=== PATIENT | male | born 1965 | race Caucasian/White ===

== ENCOUNTER 2017-09-05 00:15 | Inpatient (IN) | payer OTHER ==
[~2017-09-05] VITALS: Ht 182.9 cm; Wt 89.4 kg
[~2017-09-05 00:15] MED LIST: (None)15 G1 EXT; Bactrim 400-801 EACH PO; Bactrim Ds Tab1 EACH PO; CEPH500 PO; HYDHCL25 PO; Keflex500 MG PO; METPRE4DP PO; Nix Lice Treatm59 ML TOP; Nix Lice Treatm59 ML TP; Percocet 5-3251 EACH PO; Prednisone50 MG PO; SKIN TREATMENT225 GM TOP; Vistaril50 MG PO
[2017-09-05 01:26] LABS: BASOPHILS ABSOLUTE AUTO 0.03 K/mm3 (0.00-0.23); BASOPHILS PERCENT AUTO 0 % (0-2); EOSINOPHILS ABSOLUTE AUTO 0.11 K/mm3 (0.00-0.68); EOSINOPHILS PERCENT AUTO 1 % (0-6); Hematocrit 29.4 % (37.0-53.0); Hemoglobin 8.6 g/dL (13.5-17.5); IMMATURE GRAN ABSOLUTE AUTO 0.04 K/mm3 (0.00-0.10); IMMATURE GRAN PERCENT AUTO 0 % (0-1); LYMPHOCYTES ABSOLUTE AUTO 1.21 K/mm3 (0.84-5.20); LYMPHOCYTES PERCENT AUTO 12 % (21-46); MONOCYTES PERCENT AUTO 7 % (4-13); Mean Corpuscular HGB 22.6 pg (26.0-34.0); Mean Corpuscular HGB Conc 29.3 g/dL (31.5-36.5); Mean Corpuscular Volume 77 fL (80-100); Mean Platelet Volume 8.3 fL (9.1-12.4); NEUTROPHILS ABSOLUTE AUTO 8.32 K/mm3 (1.96-9.15); NEUTROPHILS PERCENT AUTO 80 % (41-73); Platelet Count 573 K/mm3 (150-400); RDW Coefficient Variation 17.1 % (11.7-14.2); RDW Standard Deviation 47.9 fL (35.1-46.3); White Blood Cell Count 10.41 K/mm3 (4.00-11.30)
[2017-09-05 01:41] LABS: International Normalized Ratio 1.07; Prothrombin Time Results 11.1 Sec (9.7-11.5)
[2017-09-05 01:44] LABS: Alanine Aminotransfer (ALT/SGP 15 U/L (12-78); Albumin, Blood 2.1 g/dL (3.4-5.0); Albumin/Globulin Ratio 0.4 (0.8-1.8); Alk Phos 67 U/L (50-136); Anion Gap 5 mmol/L (6-16); Aspartate Aminotrans (AST/SGOT 11 U/L (12-37); Bilirubin, Total 0.2 mg/dL (0.1-1.0); Blood Urea Nitrogen 18 mg/dL (8-24); Bun/Creatinine Ratio 17.8 (12.0-20.0); CO2, Blood 30 mmol/L (21-32); Calcium, Blood 8.2 mg/dL (8.5-10.1); Chloride, Blood 103 mmol/L (98-108); Creatinine, Blood 1.01 mg/dL (0.60-1.20); Globulin, Blood 5.7 g/dL (2.2-4.0); Glomerular Filtration Rate >60 (60-); Glucose, Blood 105 mg/dL (70-99); Potassium, Blood 4.5 mmol/L (3.5-5.5); Sodium, Blood 138 mmol/L (136-145); Total Protein, Blood 7.8 g/dL (6.4-8.2)
[2017-09-05 06:49] LABS: BASOPHILS ABSOLUTE AUTO 0.04 K/mm3 (0.00-0.23); BASOPHILS PERCENT AUTO 1 % (0-2); EOSINOPHILS ABSOLUTE AUTO 0.23 K/mm3 (0.00-0.68); EOSINOPHILS PERCENT AUTO 3 % (0-6); Hematocrit 27.7 % (37.0-53.0); Hemoglobin 8.1 g/dL (13.5-17.5); IMMATURE GRAN ABSOLUTE AUTO 0.04 K/mm3 (0.00-0.10); IMMATURE GRAN PERCENT AUTO 1 % (0-1); LYMPHOCYTES ABSOLUTE AUTO 0.95 K/mm3 (0.84-5.20); LYMPHOCYTES PERCENT AUTO 11 % (21-46); MONOCYTES ABSOLUTE AUTO 0.65 K/mm3 (0.16-1.47); MONOCYTES PERCENT AUTO 8 % (4-13); Mean Corpuscular HGB 22.7 pg (26.0-34.0); Mean Corpuscular HGB Conc 29.2 g/dL (31.5-36.5); Mean Corpuscular Volume 78 fL (80-100); Mean Platelet Volume 8.2 fL (9.1-12.4); NEUTROPHILS ABSOLUTE AUTO 6.75 K/mm3 (1.96-9.15); NEUTROPHILS PERCENT AUTO 78 % (41-73); Platelet Count 515 K/mm3 (150-400); Red Blood Cell Count 3.57 M/mm3 (4.30-5.90); White Blood Cell Count 8.66 K/mm3 (4.00-11.30)
[2017-09-05 07:11] LABS: Alanine Aminotransfer (ALT/SGP 12 U/L (12-78); Albumin, Blood 1.9 g/dL (3.4-5.0); Albumin/Globulin Ratio 0.4 (0.8-1.8); Alk Phos 57 U/L (50-136); Anion Gap 7 mmol/L (6-16); Aspartate Aminotrans (AST/SGOT 9 U/L (12-37); Bilirubin, Total 0.3 mg/dL (0.1-1.0); Blood Urea Nitrogen 17 mg/dL (8-24); Bun/Creatinine Ratio 18.5 (12.0-20.0); CO2, Blood 26 mmol/L (21-32); Calcium, Blood 7.9 mg/dL (8.5-10.1); Chloride, Blood 106 mmol/L (98-108); Creatinine, Blood 0.92 mg/dL (0.60-1.20); Globulin, Blood 5.3 g/dL (2.2-4.0); Glomerular Filtration Rate >60 (60-); Glucose, Blood 83 mg/dL (70-99); Sodium, Blood 139 mmol/L (136-145); Total Protein, Blood 7.2 g/dL (6.4-8.2)
[2017-09-05 17:08] LABS: U Amphetamine Screen DETECTED; U Barbituate Screen Not Detected; U Benzodiazapine Screen Not Detected; U Methamphetamine Screen DETECTED
[2017-09-05 17:09] LABS: U Buprenorphine Screen Not Detected; U Cannabinoids Screen DETECTED; U Cocaine Screen Not Detected; U Methadone Screen Not Detected; U Opiates Screen DETECTED; U Oxycodone Screen Not Detected; U Phencyclidine Screen Not Detected; U Propoxyphene Screen Not Detected
[2017-09-06 14:21] LABS: Creatinine, Blood 0.93 mg/dL (0.60-1.20); Vancomycin, Trough 16.6 ug/mL (5.0-10.0)
[2017-09-07] MEDS ORDERED: Ferrous Sulfat325 MG PO (13:35)
[2017-09-07] MEDS ORDERED: HYDHCL25 PO (13:37)
[2017-09-07] MEDS ORDERED: MIRALAX17 GM PO (13:38)
[2017-09-07] MEDS ORDERED: Augmentin 875-1 EACH PO (13:38)
[2017-09-07] MEDS ORDERED: ONE DAILY MUL400 MCG (13:43)
== END 2017-09-07 14:55 | disposition home or self-care (01) | DRG 256 ==
LOC: ER 00:15 → MEDS 03:37 → ERHOLD 03:37 → MEDS 15:02 → ENPENDDIS 09-07 10:30 → MEDS 09-07 14:55
PROVIDERS: Emergency Medicine; Internal Medicine; Student in an Organized Health Care Education/Training Program
PROC: 0Y6X0Z0 Detachment at Right 5th Toe, Complete, Open Approach (ICD-10-PCS; principal; 2017-09-06 10:30)
DX: I96 Gangrene, not elsewhere classified (principal); L03.115 Cellulitis of right lower limb; F17.210 Nicotine dependence, cigarettes, uncomplicated; D64.9 Anemia, unspecified; F19.10 Other psychoactive substance abuse, uncomplicated; Q80.0 Ichthyosis vulgaris; B95.4 Other streptococcus as the cause of diseases classified elsewhere
CPT/HCPCS: 36415; 71046; 73620; 80053; 80202; 82565; 83605; 85025; 85610; 85730; 87040; 87070; 87071; 87075; 87077; 87147; 87186; 87205; 88305; 88311; 93926; 93971; 96365; 96366; 96367; 96372; 96375; 96376; 99285; J1650; J1885; J2250; J2270; J2405; J2543; J3010; J3370; J7030; J7050; J7120

== ENCOUNTER 2020-04-09 14:34 | Emergency (ER) | payer OTHER ==
[~2020-04-09] VITALS: Ht 177.8 cm; Wt 99.8 kg
[~2020-04-09 14:34] MED LIST changes: +Augmentin 875-1 EACH PO; +Ferrous Sulfat325 MG PO; +MIRALAX17 GM PO; +ONE DAILY MUL400 MCG
[2020-04-09 15:28] LABS: BASOPHILS ABSOLUTE AUTO 0.06 K/mm3 (0.00-0.23); BASOPHILS PERCENT AUTO 0 % (0-2); EOSINOPHILS PERCENT AUTO 0 % (0-6); Hematocrit 42.9 % (37.0-53.0); Hemoglobin 14.3 g/dL (13.5-17.5); IMMATURE GRAN ABSOLUTE AUTO 0.08 K/mm3 (0.00-0.10); IMMATURE GRAN PERCENT AUTO 1 % (0-1); LYMPHOCYTES ABSOLUTE AUTO 0.99 K/mm3 (0.84-5.20); LYMPHOCYTES PERCENT AUTO 6 % (21-46); MONOCYTES ABSOLUTE AUTO 0.64 K/mm3 (0.16-1.47); MONOCYTES PERCENT AUTO 4 % (4-13); Mean Corpuscular HGB 28.9 pg (26.0-34.0); Mean Corpuscular HGB Conc 33.3 g/dL (31.5-36.5); Mean Corpuscular Volume 87 fL (80-100); NEUTROPHILS ABSOLUTE AUTO 14.45 K/mm3 (1.96-9.15); NEUTROPHILS PERCENT AUTO 89 % (41-73); Platelet Count 280 K/mm3 (150-400); RDW Coefficient Variation 14.5 % (11.7-14.2); RDW Standard Deviation 46.5 fL (35.1-46.3); Red Blood Cell Count 4.94 M/mm3 (4.30-5.90); White Blood Cell Count 16.22 K/mm3 (4.00-11.30)
[2020-04-09 15:45] LABS: International Normalized Ratio 1.04; Prothrombin Time Results 11.1 Sec (9.7-11.5)
[2020-04-09 15:53] LABS: Albumin, Blood 3.1 g/dL (3.4-5.0); Albumin/Globulin Ratio 0.6 (0.8-1.8); Bilirubin, Total 1.5 mg/dL (0.1-1.0); Bun/Creatinine Ratio 14.4 (12.0-20.0); Calcium, Blood 8.8 mg/dL (8.5-10.1); Creatinine, Blood 1.39 mg/dL (0.60-1.20); Globulin, Blood 5.1 g/dL (2.2-4.0); Potassium, Blood 4.4 mmol/L (3.5-5.5); Total Protein, Blood 8.2 g/dL (6.4-8.2)
[2020-04-09] MEDS ORDERED: KEFLEX500 MG PO (17:18)
[2020-04-09] MEDS ORDERED: Bactrim Ds Tab1 EACH PO (17:18)
[2020-04-09] MEDS ORDERED: Lasix20 MG PO (17:18)
== END 2020-04-09 17:45 | disposition home or self-care (01) ==
LOC: ER 14:34
PROVIDERS: Physician Assistant
DX: L03.115 Cellulitis of right lower limb (principal); F17.210 Nicotine dependence, cigarettes, uncomplicated; Z79.899 Other long term (current) drug therapy
CPT/HCPCS: 36415; 80053; 83605; 85025; 85610; 85730; 93005; 93010; 93971; 96365; 99284-25; J0696

== ENCOUNTER 2022-02-27 13:42 | Emergency (ER) | payer OTHER ==
[~2022-02-27] VITALS: Ht 177.8 cm; Wt 104.3 kg
[~2022-02-27 13:42] MED LIST changes: +KEFLEX500 MG PO; +Lasix20 MG PO
[2022-02-27 14:49] LABS: BASOPHILS ABSOLUTE AUTO 0.03 K/mm3 (0.00-0.23); BASOPHILS PERCENT AUTO 0 % (0-2); EOSINOPHILS ABSOLUTE AUTO 0.11 K/mm3 (0.00-0.68); EOSINOPHILS PERCENT AUTO 1 % (0-6); Hematocrit 35.8 % (37.0-53.0); Hemoglobin 11.6 g/dL (13.5-17.5); IMMATURE GRAN ABSOLUTE AUTO 0.04 K/mm3 (0.00-0.10); IMMATURE GRAN PERCENT AUTO 1 % (0-1); LYMPHOCYTES ABSOLUTE AUTO 0.99 K/mm3 (0.84-5.20); LYMPHOCYTES PERCENT AUTO 13 % (21-46); MONOCYTES ABSOLUTE AUTO 0.46 K/mm3 (0.16-1.47); MONOCYTES PERCENT AUTO 6 % (4-13); Mean Corpuscular HGB 27.2 pg (26.0-34.0); Mean Corpuscular HGB Conc 32.4 g/dL (31.5-36.5); Mean Corpuscular Volume 84 fL (80-100); NEUTROPHILS ABSOLUTE AUTO 6.04 K/mm3 (1.96-9.15); NEUTROPHILS PERCENT AUTO 79 % (41-73); Platelet Count 377 K/mm3 (150-400); RDW Coefficient Variation 15.6 % (11.7-14.2); RDW Standard Deviation 47.3 fL (35.1-46.3); Red Blood Cell Count 4.26 M/mm3 (4.30-5.90); White Blood Cell Count 7.67 K/mm3 (4.00-11.30)
[2022-02-27] MEDS ORDERED: CEPH500 PO (14:49)
[2022-02-27 15:11] LABS: Albumin, Blood 2.7 g/dL (3.4-5.0); Albumin/Globulin Ratio 0.5 (0.8-1.8); Bilirubin, Total 0.3 mg/dL (0.1-1.0); Bun/Creatinine Ratio 14.8 (12.0-20.0); Calcium, Blood 8.3 mg/dL (8.5-10.1); Creatinine, Blood 1.22 mg/dL (0.60-1.20); Globulin, Blood 5.3 g/dL (2.2-4.0); Potassium, Blood 4.1 mmol/L (3.5-5.5)
== END 2022-02-27 15:28 | disposition home or self-care (01) ==
LOC: ER 13:42
PROVIDERS: Emergency Medicine
DX: Q80.0 Ichthyosis vulgaris (principal); L03.818 Cellulitis of other sites; F17.210 Nicotine dependence, cigarettes, uncomplicated
CPT/HCPCS: 36415; 80053; 85025

== ENCOUNTER 2024-01-24 18:31 | Inpatient (IN) | payer OTHER ==
[~2024-01-24] VITALS: Ht 180.3 cm; Wt 102.0 kg
[2024-01-24 18:55] LABS: Hemoglobin 12.5 g/dL (13.5-17.5); Mean Corpuscular HGB 28.2 pg (26.0-34.0); Mean Corpuscular HGB Conc 33.8 g/dL (31.5-36.5); Mean Corpuscular Volume 83 fL (80-100); Mean Platelet Volume 9.5 fL (9.1-12.4); Platelet Count 256 K/mm3 (150-400); RDW Coefficient Variation 15.1 % (11.7-14.2); RDW Standard Deviation 46.2 fL (35.1-46.3); Red Blood Cell Count 4.44 M/mm3 (4.30-5.90); White Blood Cell Count 12.15 K/mm3 (4.00-11.30)
[2024-01-24] MEDS ORDERED: Acetaminophen 500 MG Tab PO ONE (18:55)
[2024-01-24 19:16] LABS: BAND PERCENT MAN 11 % (0-8); BASOPHILS PERCENT MAN 0 % (0-2); EOSINOPHILS PERCENT MAN 0 % (0-6); LYMPHOCYTES ABSOLUTE MAN 0.97 K/mm3 (0.84-5.20); LYMPHOCYTES PERCENT MAN 8 % (21-46); MONOCYTES ABSOLUTE MAN 0.12 K/mm3 (0.16-1.47); MONOCYTES PERCENT MAN 1 % (4-13); NEUTROPHILS ABSOLUTE MAN 11.05 K/mm3 (1.96-9.15); SEG NEUTROPHILS PERCENT MAN 80 % (41-73); TOTAL CELLS COUNTED 100
[2024-01-24 19:18] LABS: Albumin, Blood 2.9 g/dL (3.4-5.0); Albumin/Globulin Ratio 0.7 (0.8-1.8); Bun/Creatinine Ratio 13.8 (12.0-20.0); Calcium, Blood 8.1 mg/dL (8.5-10.1); Creatinine, Blood 1.59 mg/dL (0.60-1.20); Globulin, Blood 4.3 g/dL (2.2-4.0); Potassium, Blood 3.3 mmol/L (3.5-5.5); Total Protein, Blood 7.2 g/dL (6.4-8.2)
[2024-01-24 19:27] LABS: Magnesium, Blood 1.5 mg/dL (1.6-2.4)
[2024-01-24 19:29] LABS: Thyroid Stimulating Hormone 0.356 uIU/mL (0.360-4.800)
[2024-01-24 19:42] LABS: Influenza A, PCR NEGATIVE (NEGATIVE); Influenza B, PCR NEGATIVE (NEGATIVE); Resp Syncytial Virus, PCR NEGATIVE (NEGATIVE); SARS-Cov-2 (COVID-19) PCR, MMC NEGATIVE (NEGATIVE)
[2024-01-24] MEDS ORDERED: CefTRIAXone Sodium 1,000 MG in NS 100 ML IV ONE (19:55)
[2024-01-24 20:21] VITALS: BP 119/62
[2024-01-24] MEDS ORDERED: NS 500 ML IV SCH (20:35)
[2024-01-24] MEDS ORDERED: Azithromycin 500 MG in NS 250 ML IV ONE (21:00)
[2024-01-24] MEDS ORDERED: Ondansetron HCl 2 MG / ML 2ML Vial IV PRN (21:25)
[2024-01-24] MEDS ORDERED: Ipratropium/Albuterol SulF 2.5-0.5MG/3 ML Amp INH PRN (21:25)
[2024-01-24] MEDS ORDERED: Vancomycin HCL 2,500 MG in NS 250 ML IV ONE (21:35)
[2024-01-24] MEDS ORDERED: Piperacillin/Tazobactam Sod 4.5 GM in NS 100 ML IV ONE (21:35)
[2024-01-24] MEDS ORDERED: ASPIRIN REGIMEN81 MG PO (21:45)
[2024-01-24] MEDS ORDERED: AMLODIPINE BESY10 MG PO (21:45)
[2024-01-24] MEDS ORDERED: MethylPREDNISolone Sod Succ 125 MG Vial IV SCH (22:00)
[2024-01-24 22:08] LABS: Source, Urine Clean Catch
[2024-01-24 22:12] LABS: Bilirubin, Urine Neg (Neg); Blood, Urine 3+ (Neg); Glucose Qualitative, Urine 2+ (Neg); Ketones, Urine 3+ (Neg); Leukocyte Esterase, Urine Neg (Neg); Nitrite, Urine Neg (Neg); Protein, Urine 2+ (Neg); Urobilinogen, Urine NORM (Normal)
[2024-01-24 22:26] LABS: Appearance, Urine Clear (Clear); Color, Urine Yellow (P-Yellow); International Normalized Ratio 1.08; Prothrombin Time Results 11.5 Sec (9.7-11.5)
[2024-01-24 22:27] LABS: Amorphous Light (0-Heavy); Bacteria Rare /hpf; Red Blood Cells, Urine 0-2 /hpf (0-2); Squamous Epithelial Cells Rare /hpf (Few); White Blood Cells, Urine 0-2 /hpf (0-5)
--- NOTE | 2024-01-24 23:00 | NUR ---
ARRIVAL TO PCU: RECEIVED REPORT FROM EDGER AUTOMATIC TERRI AYALA AT 2150, PT SHORTLY ARRIVED TO PCU 2 AT 2213. TRANSFERRED FROM [facility] TO PCU BED VIA SLIDE SHEET. A/Ox4 AND ABLE TO MAKE HIS NEEDS KNOWN. SEE ADMIT ASSESSMENT FOR DETAILS. CARDIAC, TELEMETRY SHOWED SR 90'S WITH NO REPORTS OF CP, PRESSURE OR DIZZINESS. SBP STABLE RANGING 120'S. RESPIRATORY, MAINTAINS SPO2 >90% ON RA, RR RANGING 20-24 WITH SOB NOTED WITH MINMAL EXERTION. VERY MOIST AND PRODUCTIVE COUGH NOTED. SPUTUM NOTED TO HAVE BLOOD TINGE. SPUTUM SAMPLE COLLECTED. PER EDGER AUTOMATIC, AWARE OF BLOODY SPUTUM. GI/, ABLE TO USE URNIAL AT BEDSIDE WITH MINIMAL STAFF ASSIST. DENIES N/V OR ABD TENDERNESS. BS PRESENT IN ALL QUADRANTS. SKIN OVERALL INTACT, BUT NOTICIBLE DIRT AND GRIME NOTED. BED BACK GIVEN. DURING BATH, PT NOTED TO HAVE SMALL TICK ON LEFT UPPER BACK. TICK REMOVED AND PLACED IN COLLECTION CUP. DR. GIL NOTIFIED. SMALL MASS NOTED ON LEFT SIDE OF PT'S HEAD. 1xPIV IN LAC WITH RECEPHIN AND NS INFUSING PER EMAR. WILL CONTINUE TO PROCESS MD ORDERS. VSS UPON ARRIVAL TO PCU.
[2024-01-24] MEDS ORDERED: NS 250 ML IV PRN (23:20)
[2024-01-24] MEDS ORDERED: Potassium Chl 20MEQ/Water100ML 100 ML IV STA (23:33)
[2024-01-24] MEDS ORDERED: Magnesium Sulf 2 GM/Water 50ML 50 ML IV STA (23:33)
[2024-01-24] MEDS ORDERED: Loperamide HCl 2 MG Cap PO PRN (23:40)
[2024-01-25] VITALS (7 sets, daily range): BP systolic 123–146; BP diastolic 63–102
[2024-01-25] MEDS ORDERED: Potassium Chloride 20 MEQ TabCR PO SCH
[2024-01-25 03:29] LABS: Hematocrit 38.6 % (37.0-53.0); Mean Corpuscular HGB 28.4 pg (26.0-34.0); Mean Corpuscular HGB Conc 33.7 g/dL (31.5-36.5); Mean Corpuscular Volume 85 fL (80-100); Platelet Count 248 K/mm3 (150-400); RDW Coefficient Variation 15.4 % (11.7-14.2); Red Blood Cell Count 4.57 M/mm3 (4.30-5.90); White Blood Cell Count 11.33 K/mm3 (4.00-11.30)
[2024-01-25 03:49] LABS: Albumin, Blood 2.8 g/dL (3.4-5.0); Albumin/Globulin Ratio 0.6 (0.8-1.8); Bilirubin, Total 0.8 mg/dL (0.1-1.0); Bun/Creatinine Ratio 14.2 (12.0-20.0); Calcium, Blood 8.4 mg/dL (8.5-10.1); Creatinine, Blood 1.41 mg/dL (0.60-1.20); Free Thyroxine 1.04 ng/dL (0.70-1.60); Globulin, Blood 4.5 g/dL (2.2-4.0); Potassium, Blood 4.1 mmol/L (3.5-5.5); Total Protein, Blood 7.3 g/dL (6.4-8.2)
[2024-01-25 03:53] LABS: BAND PERCENT MAN 23 % (0-8); BASOPHILS PERCENT MAN 0 % (0-2); EOSINOPHILS PERCENT MAN 0 % (0-6); LYMPHOCYTES ABSOLUTE MAN 0.56 K/mm3 (0.84-5.20); LYMPHOCYTES PERCENT MAN 5 % (21-46); MONOCYTES PERCENT MAN 0 % (4-13); NEUTROPHILS ABSOLUTE MAN 10.76 K/mm3 (1.96-9.15); SEG NEUTROPHILS PERCENT MAN 72 % (41-73); TOTAL CELLS COUNTED 100
--- NOTE | 2024-01-25 05:45 | NUR ---
SHIFT SUMMARY NO ACUTE CHANGES SINCE ARRIVAL TO PCU NOTE. SEE NOTE FOR DETAILS. ABLE TO MAKE HIS NEEDS KNOWN, BUT CAN BE ANXIOUS AT TIMES. CONTINUES TO HAVE MOIST PRODUCTIVE COUGH. REPORTS IMPROVEMENT TO WORK OF BREATHING WELL GENERAL WELL BEING. PERFORMED BEDSIDE SWALLOW EVAL WITH SMALL SIPS OF WATER. PT SWALLOWED WATER WITHOUT DIFFICULTY. NO COUGHING OR CHOKING NOTED POST DRINK. NO FURTHER TICKS FOUND ON PT AT THIS TIME. NO NEW ORDERS AT THIS TIME, WILL REPORT TO ONCOMING RN. ROCÍO RESENDIZ OF THIS NOTE.
[2024-01-25] MEDS ORDERED: Piperacillin/Tazobactam Sod 4.5 GM in NS 100 ML IV SCH (06:00)
--- NOTE | 2024-01-25 07:20 | NUR ---
INITIAL ASSESSMENT: This RN arrived to the room ,patients heart rate is dropping down into the 30s while asleep, he wakes easily and HR increases to the 70s. He is oriented x4. Denies pain at this time. HRR, SR in the 70s-80s WA, when he sleeps his heart rate is down into the 50s and at times will drop to the 30s. He states he has not been diagnosed with ANGELINA but he does have apnec periods while I am in the room when he falls asleep. LS DIM with rhonchi T/O, he is high 90s on RA, he has a coarse PC with rajput sputum-sample has been sent. BT+, per noc RN salinas was having diarrhea at home but has not had any since arrival to the hospital. PPP, he does have some discoloration to BLE and a history of PVD. VSS. He denies other needs at this time. Call light in reach.
[2024-01-25] MEDS ORDERED: NS 1,000 ML IV SCH (15:55)
[2024-01-25] MEDS ORDERED: Enoxaparin 40 MG/0.4 ML SYR SC SCH (16:00)
--- NOTE | 2024-01-25 17:34 | NUR ---
Summary: Patient has been alert and oriented x4 t/o the shift. He has a history of a stroke with some minimal right sided deficits leaving some of his fingers on his right hand and toes on his right leg numb. HRR, he has been in SR in the 70s-80s, blood pressure has been stable. LS DIM with rhonchi T/O, he has been coughing up copious amounts of rajput sputum-sample has been sent. While he was sleeping he desaturated and HR dropped down into the 30s and biox dropped down to 85%, he was placed on 2L O2 via NC but has not required it while awake. BT+, he did had a BM this shift. He has been voiding in the urinal. He was able to get OOB today and take a shower. No acute changes this shift, will report to oncoming RN.
[2024-01-25] MEDS ORDERED: Vancomycin HCL 1,500 MG in NS 250 ML IV SCH (18:00)
--- NOTE | 2024-01-26 | NUR ---
UPDATE ATTEMPTED TO TRIAL PT ON CPAP DUE TO DESATURATIONS WHEN PT IS ASLEEP. PT AGREED TO TRY CPAP WHEN SLEEPING. TOLERATED CPAP FOR ABOUT 20 MINUTES, BUT DID NOT WANT TO WHERE IT ANYMORE. PT STATES, "IT MAKES ME COUGH TOO MUCH AND ITS JUST TO UNCOMFORTABLE". PT PLACED ON 2LNC INSTEAD MAINTINAING SPO2 >90% WHEN ASLEEP. ROCÍO RESENDIZ AT THIS TIME.
[2024-01-26 03:41] VITALS: BP 111/79
[2024-01-26 03:46] LABS: BASOPHILS ABSOLUTE AUTO 0.02 K/mm3 (0.00-0.23); BASOPHILS PERCENT AUTO 0 % (0-2); EOSINOPHILS PERCENT AUTO 0 % (0-6); Hematocrit 35.5 % (37.0-53.0); Hemoglobin 11.9 g/dL (13.5-17.5); IMMATURE GRAN ABSOLUTE AUTO 0.09 K/mm3 (0.00-0.10); IMMATURE GRAN PERCENT AUTO 1 % (0-1); LYMPHOCYTES ABSOLUTE AUTO 1.06 K/mm3 (0.84-5.20); LYMPHOCYTES PERCENT AUTO 9 % (21-46); MONOCYTES ABSOLUTE AUTO 0.44 K/mm3 (0.16-1.47); MONOCYTES PERCENT AUTO 4 % (4-13); Mean Corpuscular HGB 28.1 pg (26.0-34.0); Mean Corpuscular HGB Conc 33.5 g/dL (31.5-36.5); Mean Corpuscular Volume 84 fL (80-100); Mean Platelet Volume 10.4 fL (9.1-12.4); NEUTROPHILS ABSOLUTE AUTO 10.42 K/mm3 (1.96-9.15); NEUTROPHILS PERCENT AUTO 87 % (41-73); Platelet Count 305 K/mm3 (150-400); RDW Coefficient Variation 15.3 % (11.7-14.2); RDW Standard Deviation 47.2 fL (35.1-46.3); Red Blood Cell Count 4.23 M/mm3 (4.30-5.90); White Blood Cell Count 12.03 K/mm3 (4.00-11.30)
[2024-01-26 04:06] LABS: Bun/Creatinine Ratio 22.9 (12.0-20.0); Calcium, Blood 8.5 mg/dL (8.5-10.1); Creatinine, Blood 1.31 mg/dL (0.60-1.20); Potassium, Blood 3.7 mmol/L (3.5-5.5)
--- NOTE | 2024-01-26 06:03 | NUR ---
SHIFT SUMMARY A/Ox4 AND COOPERATIVE WITH CARE. ANSWERS QUESTIONS APPROPRIATLEY AND ABLE TO MAKE HIS NEEDS KNOWN. ANXIOUS AT TIMES. NO ACUTE EVENTS OVERNIGHT. CARDIAC, REMAINS IN SR 60-70'S. DENIES CP, PRESSURE OR DIZZINESS THROUGHOUT THE NIGHT. SBP STABLE RANGING 110-140'S. RESPIRATORY, MAINTAINS SPO2 >90% ON RA, BUT DOES DESAT INTO MID 80'S WHEN ASLEEP WITH AUDIBLE SNORING NOTED. ATTEMPTED TO TRIAL PT WITH CPAP. SEE UPDATE NOTE FOR DETAILS. GI/, ABLE TO USE URINAL AT BEDSIDE WITHOUT STAFF ASSISTANCE. 1x SMALL SMEAR NOTED. DENIES N/V OR ABD TENDERNESS. NS INFUSING ORDERED PER EMAR. NO NEW ORDERS AT THIS TIME, WILL REPORT TO ONCOMING RN. ROCÍO WEST OF THIS NOTE.
[2024-01-26] MEDS ORDERED: Vancomycin HCL 1,000 MG in NS 100 ML IV SCH (08:00)
[2024-01-26 08:58] VITALS: BP 147/89
[2024-01-26] MEDS ORDERED: Aspirin 81 MG Chew PO SCH (09:00)
[2024-01-26 11:23] VITALS: BP 130/86
--- NOTE | 2024-01-26 15:10 | NUR ---
Patient is more alert and his color looks better. He welcomes spiritual care and talks about about his slow but steady improvement and his desire to go home. Patient states that his greatest jeffrey [place] and that being stuck in a hospital is not his idea of a good day. He does admit that he would not have improved this much if he wasn't in admitted to the hospital. I provided gentle intellectual property counsel and prayer. Patient responded well and showed signs of being encourged in his bret.
[2024-01-26 15:13] VITALS: BP 143/98
[2024-01-26] MEDS ORDERED: Insulin Regular 100 UNIT/ML 10ML Vial SC SCH (16:30)
--- NOTE | 2024-01-26 16:45 | NUR ---
TRANSFER TO MEDICAL PT MEDICAL W/ TELEMETRY STATUS. A&O X4. VSS. SPO2 > 92% ON RA. MONITOR SHOWING SB-SR, HR 40s-70s. NS GTT INFUSING PER ORDERS. NO EVENTS THIS SHIFT. REPORT GIVEN TO ACCEPTING MEDICAL FLOOR NURSE. PT TAKEN TO RM [id number] BY WHEELCHAIR W/ BELONGINGS.
--- NOTE | 2024-01-26 17:18 | NUR ---
TRANSFER TO ROOM 328. PT ORIENTED TO ROOM. CALL LIGHT IN REACH. PT PROVIDED WITH BEVERAGE. 2 RN SKIN CHECK COMPLETED WITH NILES GAMBOA RN. PT DENIES PAIN & SHOHRTNESS OF BREATH AT THIS TIME.
[2024-01-26 19:50] VITALS: BP 145/96
[2024-01-26 20:00] LABS: Adenovirus F 40/41 Not Detected (NOT DETECT); Astrovirus Not Detected (NOT DETECT); Campylobacter Sp Not Detected (NOT DETECT); Cryptosporidium Not Detected (NOT DETECT); Cyclospora Cayetanensis Not Detected (NOT DETECT); E. Coli O157 Not Detected (NOT DETECT); Entamoeba Histolytica Not Detected (NOT DETECT); Enteroaggregative E. coli-EAEC Not Detected (NOT DETECT); Enteropathogenic E. coli-EPEC Detected (NOT DETECT); Enterotoxigenic E. coli-ETEC Not Detected (NOT DETECT); Giardia Lamblia Not Detected (NOT DETECT); Norovirus GI/GII Not Detected (NOT DETECT); Plesiomonas Shigelloides Not Detected (NOT DETECT); Rotavirus A Not Detected (NOT DETECT); Salmonella Sp Not Detected (NOT DETECT); Sapovirus Not Detected (NOT DETECT); Shiga Toxin-prod E. coli-STEC Not Detected (NOT DETECT); Shigella/Enteroin E. coli-EIEC Not Detected (NOT DETECT); Vibrio Cholerae Not Detected (NOT DETECT); Vibrio Sp Not Detected (NOT DETECT); Yersinia Enterocolitica Not Detected (NOT DETECT)
[2024-01-26] MEDS ORDERED: Sodium Bicarbonate 650 MG Tab PO SCH (21:00)
[2024-01-26] MEDS ORDERED: Lactobacil 2-S.Thermo-Bifido 1 1 Cap PO SCH (21:00)
[2024-01-27 02:54] VITALS: BP 130/92
[2024-01-27 05:56] LABS: BASOPHILS ABSOLUTE AUTO 0.02 K/mm3 (0.00-0.23); BASOPHILS PERCENT AUTO 0 % (0-2); EOSINOPHILS PERCENT AUTO 0 % (0-6); Hematocrit 33.2 % (37.0-53.0); IMMATURE GRAN PERCENT AUTO 2 % (0-1); LYMPHOCYTES ABSOLUTE AUTO 1.29 K/mm3 (0.84-5.20); LYMPHOCYTES PERCENT AUTO 11 % (21-46); MONOCYTES ABSOLUTE AUTO 0.86 K/mm3 (0.16-1.47); MONOCYTES PERCENT AUTO 7 % (4-13); Mean Corpuscular HGB 28.4 pg (26.0-34.0); Mean Corpuscular HGB Conc 33.1 g/dL (31.5-36.5); Mean Corpuscular Volume 86 fL (80-100); Mean Platelet Volume 10.2 fL (9.1-12.4); NEUTROPHILS ABSOLUTE AUTO 9.68 K/mm3 (1.96-9.15); NEUTROPHILS PERCENT AUTO 80 % (41-73); Platelet Count 314 K/mm3 (150-400); RDW Coefficient Variation 15.6 % (11.7-14.2); RDW Standard Deviation 49.1 fL (35.1-46.3); Red Blood Cell Count 3.87 M/mm3 (4.30-5.90); White Blood Cell Count 12.05 K/mm3 (4.00-11.30)
--- NOTE | 2024-01-27 05:58 | NUR ---
SHIFT SUMMARY: A&OX4 W/ MILD [place]. 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 RA W/ CONT O2 MONITORING IN PLACE. CPAP ORDERED HOWEVER PT NONCOMPLIANT D/T INTOLERANCE TRAILING CPAP <10 MIN UNTIL REMOVAL. TELE SB 50S DENIES CP/PRESSURE. EF 67% (01/2024). PT SBA TO BR AND UTILIZES URINAL FOR VOIDS. ACHS CHECKS. PT STOOL PCR NEGATIVE FOR C.DIFF, PULLED OFF R/O CDIFF ISOLATION. BC NO GROWTH. PT DENIES PAIN QUESTIONS ANSWERED. PT DENIES CONCERNS. SAFETY PRECAUTIONS MONITORED.
[2024-01-27 06:11] LABS: Bun/Creatinine Ratio 24.4 (12.0-20.0); Calcium, Blood 7.9 mg/dL (8.5-10.1); Creatinine, Blood 1.31 mg/dL (0.60-1.20); Potassium, Blood 3.8 mmol/L (3.5-5.5)
[2024-01-27 07:11] VITALS: BP 153/93
[2024-01-27] MEDS ORDERED: IPRAT-ALBUT 0.5-3 ML INH (11:07)
[2024-01-27] MEDS ORDERED: LOPE2C PO (11:08)
[2024-01-27] MEDS ORDERED: VISBIOME 112.51 EACH PO (11:08)
[2024-01-27] MEDS ORDERED: AMOCLA875 PO (11:09)
[2024-01-27] MEDS ORDERED: ELIQUIS5 M2 PO (11:09)
--- NOTE | 2024-01-27 13:33 | NUR ---
PT DISCHARGED AT 1300 VIA TAXI. PT HAD ALL PAPERWORK REVIEWED AND EDUCATIONAL MATERIAL SENT WITH HIM. PT ABLE TO AMBULATE INDEPENEDENTLY. AOX4 AND COOPERATIVE OF CARE. ALL PERSONAL BELONINGS COLLECTED AND TAKEN WITH PT. PT ESCORTED OUT VIA WHEELCHAIR TO ENTRANCE BY THIS SLAB MILLER OPERATOR.
== END 2024-01-27 13:02 | disposition home or self-care (01) | DRG 871 ==
LOC: ER 18:31 → PCU 21:15 → MEDS 01-26 16:48 → ENPENDDIS 01-27 10:59 → MEDS 01-27 13:02
PROVIDERS: Emergency Medicine; Family Medicine; ADMIT Internal Medicine
DX: A40.9 Streptococcal sepsis, unspecified (principal); J18.9 Pneumonia, unspecified organism; J96.01 Acute respiratory failure with hypoxia; E87.1 Hypo-osmolality and hyponatremia; J44.1 Chronic obstructive pulmonary disease with (acute) exacerbation; J44.0 Chronic obstructive pulmonary disease with (acute) lower respiratory infection; N17.9 Acute kidney failure, unspecified; I69.954 Hemiplegia and hemiparesis following unspecified cerebrovascular disease affecting left non-dominant side; I73.9 Peripheral vascular disease, unspecified; E83.42 Hypomagnesemia; E87.6 Hypokalemia; N18.30 Chronic kidney disease, stage 3 unspecified; K52.9 Noninfective gastroenteritis and colitis, unspecified; F17.210 Nicotine dependence, cigarettes, uncomplicated; Z79.82 Long term (current) use of aspirin; Z79.899 Other long term (current) drug therapy; F32.A Depression, unspecified; I48.0 Paroxysmal atrial fibrillation; B96.20 Unspecified Escherichia coli [E. coli] as the cause of diseases classified elsewhere; Z98.890 Other specified postprocedural states
CPT/HCPCS: 0241U; 36415; 71046; 71260; 80048; 80053; 81001; 82947; 83605; 83735; 83880; 84145; 84439; 84443; 84484; 85025; 85610; 87040; 87070; 87186; 87205; 87507; 92526; 92610; 93005; 93010; 94660; 94760; 94762; 99285-25; A9270; J0456; J0696; J1650; J1815; J2543; J2919; J3370; J3475; J3480; J7030; J7050; Q9967